=== PATIENT | male | born 1970 | race Caucasian/White ===

== ENCOUNTER 2024-08-30 09:35 | Emergency (ER) | payer BC, SELFPAY ==
--- NOTE | ~2024-08-30 | US_ITS ---
EXAMINATION: US venous doppler LE RT DATE: 08/30/2024 10:21 INDICATION: Right lower limb pain and swelling TECHNIQUE: Grayscale ultrasound images without and with compression and Doppler ultrasound images of the right lower extremity veins were obtained. COMPARISON: None. FINDINGS: Noncompressible deep venous thrombosis at the right popliteal vein which appears occlusive with no di scernible vascular flow on color Doppler. The visualized portions of right common femoral vein, profu nda (deep) femoral vein, femoral vein, posterior tibial veins, peroneal veins and greater saphenous v ein outflow are patent. IMPRESSION: 1. Occlusive appearing deep venous thrombosis in the right popliteal vein. Reviewed, dictated and finalized at location A. [employer]
[2024-08-30 09:42] VITALS: BP 144/82; PULSE 74; RESP 16; TEMP 36.6; O2SAT 97
[2024-08-30 10:40] VITALS: BP 153/98; PULSE 70; RESP 16; TEMP 36.6; O2SAT 97
--- NOTE | 2024-08-30 10:54 | ED.EXTPRO ---
HPI - Extremity Problem General Chief complaint: Extremity Problem,Nontraumatic Stated complaint: pain andswollen R calf, thinks he pulled something Time Seen by Provider: 08/30/24 09:51 Source: patient Mode of arrival: ambulatory Limitations: no limitations History of Present Illness HPI Narrative: This is a 54-year-old male that presents to the emergency department for right calf pain. Ongoing over the last couple of days. No known injury or trauma. Pain is worse with ambulation and relieved with rest. He has had associated right lower extremity swelling. Denies recent travel or surgery. No previous history of blood clots. Denies fevers. Related Data Allergies Allergy/AdvReac Type Severity Reaction Status Date / Time No Known Allergies Allergy Mild Verified 08/30/24 09:37 Review of Systems Review of Systems: CONSTITUTIONAL: Denies fever CARDIOVASCULAR: Reports edema. Denies chest pain RESPIRATORY: Denies dyspnea. SKIN: Denies rash MUSCULOSKELETAL: Reports myalgia. NEUROLOGIC: Denies numbness All systems reviewed & are unremarkable except as noted in HPI and below PMFSH Past Medical History Medical History (Updated 08/30/24 @ 11:02 by Mariaa Roland PA-C) No active medical problems Social History Social History (Updated 08/30/24 @ 10:56 by Mariaa Roland PA-C) Smoking status: Former smoker Exam Narrative: GENERAL: Well-appearing, well-nourished, and in no acute distress. HEAD: Normocephalic, atraumatic. EYES: EOMI. CHEST: No respiratory distress. HEART: Regular rate EXTREMITIES: Normal range of motion. Mild non-pitting edema to the left lower extremity. Normal DP pulse. Normal sensation SKIN: Warm, dry, no rash. NEURO: No focal deficits. Alert and oriented x3. PSYCH: Normal mood and affect Course Course Emergency Course: patient updated on his workup and agrees with plan of care Vital Signs Vital signs: Vital Signs Temperature 97.8 F 08/30/24 09:42 Pulse Rate 74 08/30/24 09:42 Respiratory Rate 16 08/30/24 09:42 Blood Pressure 144/82 H 08/30/24 09:42 Pulse Oximetry 97 08/30/24 09:42 Temperature 97.6 F 08/30/24 12:55 Pulse Rate 70 08/30/24 12:55 Respiratory Rate 16 08/30/24 12:55 Blood Pressure 170/77 H 08/30/24 12:55 Pulse Oximetry 98 08/30/24 12:55 MDM - Extremity (Nontraumatic) MDM Narrative Medical decision making narrative: patient presents the emergency department for right calf pain. He is afebrile and nontoxic appearing. He is neurovascularly intact. Right lower extremity venous Doppler showing a DVT in the right popliteal. patient will be started on anticoagulation was instructed to have follow-up with his primary provider. He was given warnings to return to the ER Differential Diagnosis Differential diagnosis: Likely cellulitis, deep vein thrombosis of lower extremity and other (muscle strain) Lab Data Attestation: I reviewed the patient's lab results. 08/30/24 11:09 08/30/24 11:09 Labs: Lab Results 08/30/24 Range/Units 11:09 WBC 6.2 (4.5-10.0) K/mm3 RBC 4.22 L (4.6-6.20) M/mm3 Hgb 13.0 L (14.0-18.0) g/dL Hct 37.6 L (42.0-52.0) % MCV 89.1 (80-100) fl MCH 30.8 (26-34) pg MCHC 34.6 (32-36) g/dl RDW 12.7 (11.5-14.5) % Plt Count 159 (150-375) k/mm3 MPV 9.1 (7.4-10.4) fl Immature Gran % (Auto) 0.2 (0-0.5) % Neut % (Auto) 63.2 (45.5-73.1) % Lymph % (Auto) 23.6 (18.3-44.2) % [place] % (Auto) 10.0 H (2.6-8.5) % Eos % (Auto) 2.7 (0-4.4) % Baso % (Auto) 0.3 (0.2-1.2) % Lymph # (Auto) 1.46 (0.9-3.2) K/mm3 [place] # (Auto) 0.6 (0.1-0.6) K/mm3 Eos # (Auto) 0.2 (0-0.3) K/mm3 Baso # (Auto) 0.0 (0.0-0.1) K/mm3 Abs Immat Gran (auto) 0.01 (0.00-0.031) K/mm3 Absolute Neuts (auto) 3.9 (1.3-6.7) K/mm3 Absolute Nucleated RBC 0.000 (0.0-0.012) K/mm3 Nucleated RBC % 0.0 (0.0-0.2) % PT 14.0 (11.1-14.7) Seconds INR 1.0 APTT 29.1 (22.3-36.8) Seconds Sodium 139 (137-145) mmol/L Potassium 4.0 (3.4-5.0) mmol/L Chloride 105 (98-107) mmol/L Carbon Dioxide 27 (22-30) mmol/L Anion Gap 7 (4-12) mmol/L BUN 15 (9-20) mg/dL Creatinine 0.70 (0.7-1.3) mg/dL Estim Creat Clear Calc 150 ml/min Estimated GFR > 60 (59 - ) Glucose 115 H (65-110) mg/dL Calcium 8.8 (8.4-10.2) mg/dL Imaging Data Radiologist's impression: ITS Impressions Venous Doppler Study 08/30/24 10:23 IMPRESSION: 1. Occlusive appearing deep venous thrombosis in the right popliteal vein. Critical Care Time Critical Care Time Critical Care Time: No Discharge Plan Discharge Clinical Impression: Deep vein thrombosis (DVT) of popliteal vein of right lower extremity Qualifiers: Chronicity: acute Qualified Code(s): I82.431 - Acute embolism and thrombosis of right popliteal vein Patient Disposition: Home, Self-Care Condition: Stable Instructions: Deep Vein Thrombosis (ED) Additional Instructions: Return to the ER if you experience fever, redness and swelling of your leg, weakness, numbness, or any other symptoms that are concerning to you Rest, use ice/heat, take anti-inflammatories (Aleve, Ibuprofen, Naproxen, etc) or Tylenol as needed for pain as well as muscle relaxer (Flexeril) as needed for pain. Elevate the leg. Wear compression stockings. take Eliquis as prescribed. You will start with 10 mg twice daily for the 1st week, then 5 mg twice daily thereafter Follow up with your primary care doctor Prescriptions: New Eliquis 5 mg tablet 10 mg PO BID 7 Days Qty: 28 0RF Eliquis 5 mg tablet 5 mg PO BID 21 Days Qty: 42 0RF Follow-up/Referrals: Selwyn Lovelace MD [Physician] - Gerardo Montalvo MD [Primary Care Provider] -
[2024-08-30 11:26] LABS: Basophils Percent Auto 0.3 % (0.2-1.2); Eosinophils Absolute Auto 0.2 K/mm3 (0-0.3); Eosinophils Percent Auto 2.7 % (0-4.4); Hematocrit 37.6 % (42.0-52.0); Immature Granulocyte Absolute 0.01 K/mm3 (0.00-0.031); Immature Granulocyte Percent A 0.2 % (0-0.5); Lymphocytes Absolute Auto 1.46 K/mm3 (0.9-3.2); Lymphocytes Percent Auto 23.6 % (18.3-44.2); Mean Corpuscular HGB Conc 34.6 g/dl (32-36); Mean Corpuscular Hemoglobin 30.8 pg (26-34); Mean Corpuscular Volume 89.1 fl (80-100); Mean Platelet Volume 9.1 fl (7.4-10.4); Monocytes Absolute Auto 0.6 K/mm3 (0.1-0.6); Neutrophils Absolute Auto 3.9 K/mm3 (1.3-6.7); Neutrophils Percent Auto 63.2 % (45.5-73.1); Platelet Count Result 159 k/mm3 (150-375); Red Blood Count 4.22 M/mm3 (4.6-6.20); Red Cell Distribution Width 12.7 % (11.5-14.5); White Blood Count 6.2 K/mm3 (4.5-10.0)
[2024-08-30 11:38] LABS: Anion Gap 7 mmol/L (4-12); Blood Urea Nitrogen 15 mg/dL (9-20); Calcium 8.8 mg/dL (8.4-10.2); Carbon Dioxide 27 mmol/L (22-30); Chloride 105 mmol/L (98-107); Estimated CRCL calculation 150 ml/min; Estimated Glomerular Filt Rate > 60; Glucose 115 mg/dL (65-110); Sodium 139 mmol/L (137-145)
[2024-08-30 11:42] LABS: Partial Thromboplastin Time 29.1 Seconds (22.3-36.8)
[2024-08-30 12:00] VITALS: BP 164/80; PULSE 72; RESP 16; TEMP 36.4; O2SAT 98
[2024-08-30 12:55] VITALS: BP 170/77; PULSE 70; RESP 16; TEMP 36.4; O2SAT 98
== END 2024-08-30 13:26 | disposition home or self-care (01) ==
PROVIDERS: Emergency Provider Physician Assistant; PCP Family Medicine Adolescent Medicine
DX: I82.431 Acute embolism and thrombosis of right popliteal vein (principal)
CPT/HCPCS: 36415; 80048; 85025; 85610; 85730; 93971; 99284